=== PATIENT | male | born 1985 ===

== ENCOUNTER 2018-12-06 19:30 | Outpatient (CLI) | payer BC | END 2018-12-06 19:31 | disposition home or self-care (01) | LOC: SLEEPLAB 19:30 | DX: G47.10 Hypersomnia, unspecified (principal); G47.33 Obstructive sleep apnea (adult) (pediatric); R53.83 Other fatigue; G31.84 Mild cognitive impairment of uncertain or unknown etiology; R06.83 Snoring; G47.00 Insomnia, unspecified; E66.9 Obesity, unspecified; Z68.41 Body mass index [BMI] 40.0-44.9, adult | CPT/HCPCS: 95811 ==